=== PATIENT | male | born 1975 | race Caucasian/White ===

== ENCOUNTER 2017-05-14 05:32 | Inpatient (IN) | payer OTHER ==
[2017-05-14] MEDS ORDERED: NORMAL SALINE 500 ML IV ONE (05:53)
--- NOTE | 2017-05-14 07:09 | ER Document Report ---
ED GI/ - General Chief Complaint: Abdominal Pain Stated Complaint: LOWER ABDOMINAL PAIN Time Seen by Provider: 05/14/17 07:15 Mode of Arrival: Ambulatory Information source: Patient Notes: 42 yo smoker, recovering etoh x 75 days, no drugs, male normally healthy c/o dull ache low abdominal pain with sharp episodes and bl oating for 2 weeks. Normal BM's. suprapubic pressure with urination. Feels hard rubber ball below the umbilicus. Feels like he is emptying bladder. No clear urine which is unusual for increased water intake. No perineal pain. No fever. No abd. surgeries. No vomiting, no nausea. TRAVEL OUTSIDE OF THE [place] 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 Drug Abuse: None Lives with: Family Family History: Reviewed & Not Pertinent Patient has suicidal ideation: No Patient has homicidal ideation: No - Medical History Medical History: Negative Renal/ Medical History: Denies: Hx Peritoneal Dialysis Surgical Hx: Negative Review of Systems - Review of Systems Constitutional: No symptoms reported EENT: No symptoms reported Cardiovascular: No symptoms reported Respiratory: No symptoms reported Gastrointestinal: No symptoms reported Genitourinary: See HPI Male Genitourinary: No symptoms reported Musculoskeletal: No symptoms reported Skin: No symptoms reported Hematologic/Lymphatic: No symptoms reported Neurological/Psychological: No symptoms reported Physical Exam - Vital signs Vitals: Temp Pulse Resp BP Pulse Ox 99.0 F 93 18 126/87 H 97 05/14/17 05:46 05/14/17 05:46 05/14/17 05:46 05/14/17 05:46 05/14/17 05:46 Interpretation: Normal - General General appearance: Appears well, Alert In distress: None - HEENT Head: Normocephalic, Atraumatic Eyes: Normal Conjunctiva: Normal Pupils: PERRL Neck: Supple. No: Lymphadenopathy - Respiratory Respiratory status: No respiratory distress Chest status: Nontender Breath sounds: Normal Chest palpation: Normal - Cardiovascular Rhythm: Regular Heart sounds: Normal auscultation Murmur: No - Abdominal Inspection: Normal Distension: No distension Bowel sounds: Normal Tenderness: Tender - LLQ Organomegaly: No organomegaly. No: Hepatomegaly, Splenomegaly - Back Back: Normal, Nontender. No: CVA tenderness - Extremities General upper extremity: Normal inspection, Nontender, Normal color, Normal ROM , Normal temperature General lower extremity: Normal inspection, Nontender, Normal color, Normal ROM , Normal temperature, Normal weight bearing. No: Curt's sign - Neurological Neuro grossly intact: Yes Cognition: Normal Orientation: AAOx4 Maggi Coma Scale Eye Opening: Spontaneous [place] Coma Scale Verbal: Oriented Maggi Coma Scale Motor: Obeys Commands [place] Coma Scale Total: 15 Speech: Normal Motor strength normal: LUE, RUE, LLE, RLE Sensory: Normal - Psychological Associated symptoms: Normal affect, Normal mood - Skin Skin Temperature: Warm Skin Moisture: Dry Skin Color: Normal Skin irregularity: negative: Rash Course - Re-evaluation Re-evalutation: 05/14/17 08:[address] Leon and patient has a "iodide" allergies she recommended oral contrast instead of IV since his BMI is only 28. 05/14/17 12:[address] Zack Whittington about the 2.7 x 3.2 cm fluid collection abscess and surrounding mesenteric inflammation sigmoid colon, diverticulitis. He will admit to his service. Patient willing to be admitted IVs fluids at 150 an hour and antibiotics have been ordered. 05/14/17 12:08 - Vital Signs Vital signs: Temp Pulse Resp BP Pulse Ox 99.0 F 86 16 125/78 98 05/14/17 11:32 05/14/17 11:32 05/14/17 11:32 05/14/17 11:32 05/14/17 11:32 - Laboratory Result Diagrams: 05/14/17 07:52 05/14/17 07:52 Laboratory results interpreted by me: 05/14/17 05/14/17 07:52 07:52 WBC 13.8 H Absolute Neutrophils 10.4 H Glucose 114 H Discharge - Discharge Clinical Impression: Diverticulitis of intestine with abscess Qualifiers: Diverticulitis site: large intestine Diverticulitis bleeding: without bleeding Qualified Code(s): K57.20 - Diverticulitis of large intestine with perforation and abscess without bleeding Condition: Stable Disposition: ADMITTED INPATIENT Admitting Provider: Surgicalist Unit Admitted: Surgical Floor Instructions: Diverticulitis ([facility])
[2017-05-14 08:00] LABS: APPEARANCE,URINE SLIGHTLY-CLOUDY; BILIRUBIN,URINE NEGATIVE (NEGATIVE); GLUCOSE, URINE NEGATIVE (NEGATIVE); KETONES,URINE NEGATIVE (NEGATIVE); LEUKOCYTE ESTERASE,URINE NEGATIVE (NEGATIVE); NITRITE,URINE NEGATIVE (NEGATIVE); PROTEIN,URINE NEGATIVE (NEGATIVE); URINE SPECIFIC GRAVITY 1.005; UROBILINOGEN,URINE NEGATIVE mg/dL (<2.0)
[2017-05-14 08:09] LABS: ABSOLUTE BASOPHILS # (AUTO) 0.1 10^3/uL (0.0-0.2); ABSOLUTE EOSINOPHILS # (AUTO) 0.2 10^3/uL (0.0-0.6); ABSOLUTE LYMPHOCYTES (AUTO) 1.9 10^3/uL (0.5-4.7); ABSOLUTE MONOCYTES (AUTO) 1.3 10^3/uL (0.1-1.4); ABSOLUTE NEUT (AUTO) 10.4 10^3/uL (1.7-8.2); BASOPHILS % (AUTO) 0.6 % (0-2); EOSINOPHILS % (AUTO) 1.5 % (0-6); HEMATOCRIT 41.9 % (37.9-51.0); HEMOGLOBIN 14.7 g/dL (13.5-17.0); HGB HCT DIFFERENCE 2.2; LYMPHOCYTES % (AUTO) 13.6 % (13-45); MEAN CORPUSCULAR VOLUME 92 fl (80-97); MONOCYTES % (AUTO) 9.3 % (3-13); RED BLOOD COUNT 4.58 10^6/uL (4.35-5.55); RED CELL DISTRIBUTION WIDTH 12.9 % (11.5-14.0); WHITE BLOOD COUNT 13.8 10^3/uL (4.0-10.5)
[2017-05-14 08:17] LABS: ALANINE AMINOTRANSFERASE 31 U/L (21-72); ALBUMIN 3.7 g/dL (3.5-5.0); ALKALINE PHOSPHATASE 61 U/L (38-126); ANION GAP 13 (5-19); ASPARTATE AMINO TRANSFERASE 17 U/L (17-59); BILIRUBIN,DIRECT 0.2 mg/dL (0.0-0.4); BILIRUBIN,TOTAL 0.6 mg/dL (0.2-1.3); BLOOD UREA NITROGEN 10 mg/dL (7-20); CALCIUM 9.2 mg/dL (8.4-10.2); CARBON DIOXIDE 25 mmol/L (22-30); CHLORIDE 105 mmol/L (98-107); CREATININE RESULT 0.89 mg/dL (0.52-1.25); GLUCOSE 114 mg/dL (75-110); LIPASE 85.7 U/L (23-300); POTASSIUM 4.4 mmol/L (3.6-5.0); SODIUM 143.1 mmol/L (137-145); TOTAL PROTEIN 6.6 g/dL (6.3-8.2)
[2017-05-14] MEDS ORDERED: MORPHINE SULFATE 10 MG/ML INJ IV ONE (10:32)
--- NOTE | 2017-05-14 11:33 | RADIOLOGY REPORT (SQ) ---
EXAM DESCRIPTION: CT ABD/PELVIS ORAL ONLY COMPLETED DATE/TIME: 05/14/2017 11:16 am REASON FOR STUDY: LLQ abd pain COMPARISON: None. TECHNIQUE: CT scan of the abdomen and pelvis performed with oral contrast and no intravenous contras t. Images reviewed with lung, soft tissue, and bone windows. Reconstructed coronal and sagittal MPR i mages reviewed. All images stored on PACS. All CT scanners at this facility use dose modulation, iterative reconstruction, and/or weight based d osing when appropriate to reduce radiation dose to as low as reasonably achievable (ALARA). [facility]: Dose Right [facility]: CareDose [facility]: Dose Right [facility]: Teradose 4D [facility]: Fileboard RADIATION DOSE: Up-to-date CT equipment and radiation dose reduction techniques were employed. CTDIv ol: 8.8 mGy. DLP: 481 mGy-cm. mGy. LIMITATIONS: None. FINDINGS: LOWER CHEST: No significant findings. No nodules or infiltrates. NON-CONTRASTED LIVER, SPLEEN, ADRENALS: Evaluation limited by lack of IV contrast. No identified sign ificant masses. PANCREAS: No masses. No peripancreatic inflammatory changes. GALLBLADDER: No identified stones by CT criteria. No inflammatory changes to suggest cholecystitis. RIGHT KIDNEY AND URETER: No suspicious masses. Assessment limited by lack of IV contrast. No signif icant calcifications. No hydronephrosis or hydroureter. LEFT KIDNEY AND URETER: No suspicious masses. Assessment limited by lack of IV contrast. No signifi cant calcifications. No hydronephrosis or hydroureter. AORTA AND RETROPERITONEUM: No aneurysm. No retroperitoneal masses or adenopathy. BOWEL AND PERITONEAL CAVITY: Mesenteric inflammation sigmoid colon. 2.7 x 3.2 cm in diameter fluid c ollection. Due to surrounding bowel, this will be difficult to drain percutaneously. Surgical consu ltation is recommended. No ascites or free air. APPENDIX: Normal. PELVIS, BLADDER, AND ABDOMINAL WALL: No abnormal pelvic masses. No abdominal wall hernias. Bladder un remarkable. BONES: No significant findings. OTHER: No other significant finding. IMPRESSION: Diverticulitis. Small abscess. TECHNICAL DOCUMENTATION: JOB ID: [id number] Quality ID # [id number]: Final reports with documentation of one or more dose reduction techniques (e.g., Au tomated exposure control, adjustment of the mA and/or kV according to patient size, use of iterative reconstruction technique) 2010 [employer]- All Rights Reserved
[2017-05-14] MEDS ORDERED: METRONIDAZOLE 500 MG/NS RTU 100 ML IV ONE (12:00)
[2017-05-14] MEDS ORDERED: CIPROFLOXACIN 400 MG/D5W RTU 400 MG/200 ML RTUPB IV SCH (12:00)
[2017-05-14] MEDS ORDERED: NORMAL SALINE 1000 ML 1,000 ML IV ONE (12:08)
[2017-05-14] MEDS ORDERED: MORPHINE SULFATE 10 MG/ML INJ IV PRN (14:38)
[2017-05-14] MEDS ORDERED: NORMAL SALINE 1000 ML 1,000 ML IV PRN (14:38)
[2017-05-14] MEDS ORDERED: ONDANSETRON HCL INJ/PF 4 MG/2 ML SDV IV PRN (14:38)
[2017-05-14] MEDS ORDERED: DEXTROSE 40% GEL 15 GM TUBE PO PRN ×2 (14:38)
[2017-05-14] MEDS ORDERED: DEXTROSE 50%-WATER 25 GM/50 ML DISP.SYRIN IV PRN ×2 (14:38)
[2017-05-14] MEDS ORDERED: GLUCAGON,HUMAN RECOMB 1 MG INJ SUBCUT PRN (14:38)
--- NOTE | 2017-05-14 14:38 | PDOC H&P ---
History of Present Illness Admission Date/PCP: 05/14/17 12:23 Patient complains of: Lower abdominal pain, bloating and gaseousness. History of Present Illness: TAMARA DEE is a 42 year old male who presents with a 1-1/2 week period of bloating and gaseousness, that did not respond to Gas-X, laxatives, or cessation of his supplements and vitamins.Of bloating and gaseousness, that did not respond to Gas-X, laxatives, or cessation of his supplements and vitamins.The patient states that he began having pain, approximately 2-3 days ago that was 8-9 out of 10. When seen in the emergency room, he was found to have left lower quadrant tenderness and guarding. However, the CT scan revealed a 2.7 x 3.2 cm abscess,along the sigmoid colon, That was not amenable to percutaneous drainage, secondary to bowel loops. Surgical referral was just made because of the need for sigmoid resection. Social History Lives with: Family Smoking Status: Current Every Day Smoker - Advance Directive Resuscitation Status: Full Code Family History Family History: Reviewed & Not Pertinent Parental Family History Reviewed: No Children Family History Reviewed: No Sibling(s) Family History Reviewed.: No Medication/Allergy Home Medications: No Home Medications 05/14/17 Allergies/Adverse Reactions: iodine Allergy (Verified 05/14/17 08:02) Penicillins Allergy (Verified 05/14/17 08:02) Physical Exam Vital Signs: Temp Pulse Resp BP Pulse Ox 98.1 F 83 18 124/82 97 05/14/17 13:33 05/14/17 13:33 05/14/17 13:33 05/14/17 13:33 05/14/17 13:33 General appearance: PRESENT: no acute distress, cooperative, well-developed, well-nourished Head exam: PRESENT: atraumatic, normocephalic Eye exam: PRESENT: conjunctiva pink, EOMI, PERRLA Mouth exam: PRESENT: moist, neck supple, tongue midline Neck exam: PRESENT: full ROM. ABSENT: JVD, lymphadenopathy, tenderness, thyromegaly, tracheal deviation Respiratory exam: PRESENT: clear to auscultation latrice. ABSENT: crackles, rales, tachypnea, unlabored, wheezes Cardiovascular exam: PRESENT: RRR GI/Abdominal exam: PRESENT: guarding - Mild, normal bowel sounds, soft, tenderness - Left lower quadrant. ABSENT: rebound, rigid Rectal exam: PRESENT: deferred Neurological exam: PRESENT: alert, altered, awake, oriented to person, oriented to place, oriented to time, oriented to situation Psychiatric exam: PRESENT: appropriate affect Results Impressions: Abdomen/Pelvis CT 05/14/17 08:37 IMPRESSION: Diverticulitis. Small abscess. Assessment & Plan - Plan Summary Plan Summary: Given the percutaneous drainage cannot be accomplished, and given that he is not obstructed, we will proceed with bowel prep, IV antibiotics, and prepare for sigmoid resection with primary anastomosis in the morning.
[2017-05-14] MEDS ORDERED: INFLUENZA ADLT QUAD (36MOS+) 2017-18 VAC 0.5 ML SYR IM PRN (15:55)
[2017-05-14] MEDS ORDERED: PEG 3350/NA SULF,BICARB,CL/KCL 4000 ML PO PRN (17:00)
[2017-05-14] MEDS: METRONIDAZOLE 500 MG/NS RTU 100 ML IV SCH ×2 (17:31→23:52)
[2017-05-14] MEDS: FAMOTIDINE INJ/PF 20 MG/2 ML SDV IV SCH (22:37)
[2017-05-14] MEDS: CIPROFLOXACIN 400 MG/D5W RTU 400 MG/200 ML RTUPB IV SCH (22:37)
[2017-05-15] MEDS: METRONIDAZOLE 500 MG/NS RTU 100 ML IV SCH ×3 (05:33→17:50)
[2017-05-15] MEDS: CIPROFLOXACIN 400 MG/D5W RTU 400 MG/200 ML RTUPB IV SCH ×2 (09:08→22:28)
[2017-05-15] MEDS: FAMOTIDINE INJ/PF 20 MG/2 ML SDV IV SCH ×2 (09:09→22:28)
[2017-05-15] MEDS: ENOXAPARIN SODIUM INJ 40 MG/0.4 ML DISP.SYRIN SUBCUT SCH (09:09)
[2017-05-15] MEDS ORDERED: BUPIVACAINE HCL 0.5 % INJ/PF 30 ML SDV ONE (11:08)
[2017-05-15] MEDS ORDERED: GLUCAGON,HUMAN RECOMB 1 MG INJ ONE (11:08)
[2017-05-15] MEDS ORDERED: FENTANYL CITRATE INJ/PF 250 MCG/5 ML AMPULE ONE (12:14)
[2017-05-15] MEDS ORDERED: MIDAZOLAM 2 MG/2 ML INJ ONE (12:15)
[2017-05-15] MEDS ORDERED: PROPOFOL INJ 200 MG/20 ML VIAL IV ONE (12:15)
[2017-05-15] MEDS ORDERED: EPHEDRINE SULFATE INJ 50 MG/1 ML AMPULE ONE (12:15)
[2017-05-15] MEDS ORDERED: ACETAMINOPHEN 100 ML IV ONE (12:15)
[2017-05-15] MEDS ORDERED: HYDROMORPHONE HCL INJ/PF 2 MG/ML AMPULE ONE ×2 (12:15→14:44)
[2017-05-15] MEDS ORDERED: METRONIDAZOLE 500 MG/NS RTU 100 ML IV ONE (12:22)
[2017-05-15] MEDS ORDERED: ONDANSETRON HCL INJ/PF 4 MG/2 ML SDV ONE (14:23)
[2017-05-15] MEDS ORDERED: NEOSTIGMINE METHYLSULFATE 10 MG/10 ML VIAL ONE (14:23)
[2017-05-15] MEDS ORDERED: DEXAMETHASONE SOD PHOSPHATE INJ 4 MG/1 ML VIAL ONE (14:23)
[2017-05-15] MEDS ORDERED: ROCURONIUM BROMIDE INJ 50 MG/5 ML VIAL IV ONE (14:23)
[2017-05-15] MEDS ORDERED: GLYCOPYRROLATE INJ 0.4 MG/2 ML VIAL ONE (14:23)
[2017-05-15] MEDS ORDERED: SUCCINYLCHOLINE CHLORIDE INJ 200 MG/10 ML VIAL ONE (14:23)
[2017-05-15] MEDS ORDERED: ONDANSETRON HCL INJ/PF 4 MG/2 ML SDV IV PRN ×2 (14:31→15:00)
--- NOTE | 2017-05-15 14:31 | Brief Operative Note ---
BRIEF OPERATIVE REPORT DATE OF SURGERY: 05/15/17 TIME OF SURGERY: 12:15 PREOPERATIVE DIAGNOSIS: Contained perforated sigmoid diverticulitis with abscess /phlegmon POSTOPERATIVE DIAGNOSIS: Same SURGEON: VERENICE PALUMBO FINDINGS: Contained perforated sigmoid diverticulitis with abscess/phlegmon COMPLICATIONS: None ESTIMATED BLOOD LOSS: 50cc TISSUE REMOVED OR ALTERED: Segment of sigmoid colon with abscess/phlegmon TECHNICAL PROCEDURE: See Dictation
[2017-05-15] MEDS ORDERED: MEPERIDINE HCL/PF INJ 25 MG/1 ML DISP.SYRIN IV PRN (15:23)
[2017-05-15] MEDS ORDERED: PROMETHAZINE HCL INJ 25 MG/1 ML VIAL IV PRN ×2 (15:23)
[2017-05-15] MEDS ORDERED: MORPHINE SULFATE 10 MG/ML INJ IV PRN (15:23)
[2017-05-15] MEDS ORDERED: OXYCODONE-ACETAMINOPHEN 5-325 MG TABLET PO PRN ×2 (15:23)
[2017-05-15] MEDS ORDERED: FENTANYL CITRATE INJ/PF 100 MCG/2 ML AMPUL IV PRN ×3 (15:23)
[2017-05-15] MEDS ORDERED: DIPHENHYDRAMINE HCL 50 MG/ML VIAL IV PRN (15:23)
[2017-05-15] MEDS ORDERED: KETOROLAC TROMETHAMINE INJ/PF 30 MG/1 ML SDV ONE (15:33)
--- NOTE | 2017-05-15 17:03 | OPERATIVE REPORT E ---
Operative Report NAME: TAMARA DEE : 1975 AGE: 42Y DATE OF SURGERY: 05/15/2017 ROOM: 424 PREOPERATIVE DIAGNOSIS: CONTAINED PERFORATED SIGMOID DIVERTICULITIS WITH ABSCESS, NOT AMENABLE TO PERCUTANEOUS DRAINAGE BY CT GUIDED DRAINAGE. POSTOPERATIVE DIAGNOSIS: PERFORATED SIGMOID DIVERTICULITIS WITH SIGMOID PHLEGMON. OPERATION: Segmental sigmoid colectomy with primary anastomosis between the descending colon and the sigmoid colon. SURGEON: VERENICE PALUMBO M.D. ANESTHESIA: General REPLACEMENT: Crystalloids. DRAINS: None. COMPLICATIONS: None. CONDITION: Stable. FINDINGS: Patient was admitted with contained perforated sigmoid diverticulitis with abscess formation measuring 2.3 x 4.7 cm however at the time of surgery, patient was found to have a phlegmon of the proximal sigmoid colon without evidence of an abscess. PROCEDURE: The patient was brought to the operating room suite and placed in supine position on the operating table. Monitoring devices were attached. IV sedation was administered followed by the induction of general endotracheal anesthesia. The patient's abdomen was prepped and draped in the usual sterile manner. A timeout was achieved. After all concurred, the patient's abdomen was marked and a midline incision was made from the supraumbilical region to the suprapubic region. The incision was guided through the skin and subcutaneous tissue down to the linea alba. The linea alba was divided as was the peritoneum and the abdominal cavity was entered. Upon entering the abdominal cavity, we noted the sigmoid phlegmon to which a loop of small bowel was adherent and it was also adherent to the posterior peritoneum. We then packed away the majority of the small bowel using laps in the upper abdomen and then we began to dissect the phlegmon off the posterior peritoneum and dissected loops of small bowel off the phlegmon. We did this using blunt and sharp dissection and significant tissue attachments were divided using the endo ligature. We then decided to divide the segment of the mid sigmoid from the distal sigmoid and a GEOVANY was used to divide the sigmoid. We then continued to mobilize the sigmoid and the phlegmon from the posterior peritoneum and once this was accomplished using the LigaSure, we then divided the proximal to distal descending colon from the proximal sigmoid where the phlegmon had formed. Once this was done, we then mobilized the descending colon by incising along the white line of Toldt in order to bring down our descending colon so that a iuyp-cr-oclr anastomosis could be created between the distal sigmoid and the proximal descending colon. We then lined up the bowel [id number] using 3-0 silk sutures. Once this was done, we made openings in each segment and after placing a bowel clamp on the descending colon, we inserted the GEOVANY-5 stapler creating a npcf-[id number] anastomosis. We then closed the opening made by the GEOVANY using the TA-30 and once this was done, this was oversewn using 3-0 silk. The patient tolerated the procedure well. Sponge and instrument counts were correct. The patient was discharged to the PACU in stable condition. DICTATING PHYSICIAN: VERENICE PALUMBO M.D. [id number] PHY#: [id number] ID: [id number] JOB#: [id number] ACCT: [id number] cc:VERENICE PALUMBO M.D. >
[2017-05-15] MEDS: MORPHINE SULFATE 10 MG/ML INJ IV PRN ×2 (18:37→22:27)
[2017-05-15] MEDS: DEXTROSE 5%-LACTATED RINGERS 1,000 ML IV PRN (22:39)
[2017-05-16] MEDS: METRONIDAZOLE 500 MG/NS RTU 100 ML IV SCH ×4 (01:09→17:30)
[2017-05-16] MEDS: KETOROLAC TROMETHAMINE INJ/PF 30 MG/1 ML SDV IV PRN ×2 (03:14→21:33)
[2017-05-16] MEDS: ENOXAPARIN SODIUM INJ 40 MG/0.4 ML DISP.SYRIN SUBCUT SCH (09:26)
[2017-05-16] MEDS: CIPROFLOXACIN 400 MG/D5W RTU 400 MG/200 ML RTUPB IV SCH ×2 (09:26→21:33)
[2017-05-16] MEDS: MORPHINE SULFATE 10 MG/ML INJ IV PRN ×3 (09:26→20:27)
[2017-05-16] MEDS: FAMOTIDINE INJ/PF 20 MG/2 ML SDV IV SCH ×2 (09:26→21:33)
--- NOTE | 2017-05-16 10:22 | PDOC PROGRESS REPORT ---
Subjective Progress Note for:: 05/16/17 Subjective:: POD 1 s/p sigmoid colectomy, patient at bedside awaiting removal of evans catheter, pain at surgical site. Hungry no flattus. Initiating cliq diet. Physical Exam Vital Signs: Temp Pulse Resp BP Pulse Ox 98.1 F 81 17 113/71 96 05/16/17 00:49 05/16/17 00:49 05/16/17 00:49 05/16/17 00:49 05/16/17 00:49 Intake & Output 05/15/17 05/16/17 05/17/17 06:59 06:59 06:59 Intake Total 5950 71914 Output Total 2700 Balance 5950 00151 Weight 90.718 kg 90.718 kg General appearance: PRESENT: no acute distress, cooperative, well-developed, well-nourished Head exam: PRESENT: atraumatic, normocephalic Eye exam: PRESENT: conjunctiva pink. ABSENT: conjunctival injection Mouth exam: PRESENT: moist, tongue midline Neck exam: ABSENT: lymphadenopathy, thyromegaly Respiratory exam: PRESENT: symmetrical. ABSENT: accessory muscle use, tachypnea Vascular exam: PRESENT: normal capillary refill GI/Abdominal exam: PRESENT: soft, tenderness - incisional. ABSENT: distended, firm, guarding Extremities exam: ABSENT: calf tenderness, clubbing, tenderness Musculoskeletal exam: PRESENT: ambulatory, full ROM Neurological exam: PRESENT: alert, awake, oriented to person, oriented to place , oriented to time, CN II-XII grossly intact Results Impressions: Abdomen/Pelvis CT 05/14/17 08:37 IMPRESSION: Diverticulitis. Small abscess. Assessment & Plan - Diagnosis (1) S/P partial colectomy Is this a current diagnosis for this admission?: Yes Plan: Cliq diet, advance diet with bowel function Ambulation Pain control Pulmonary toilet, IS ordered DVT/GI prophylaxis
[2017-05-16 10:56] LABS: ABSOLUTE BASOPHILS # (AUTO) 0.1 10^3/uL (0.0-0.2); ABSOLUTE EOSINOPHILS # (AUTO) 0.1 10^3/uL (0.0-0.6); ABSOLUTE LYMPHOCYTES (AUTO) 2.2 10^3/uL (0.5-4.7); ABSOLUTE MONOCYTES (AUTO) 0.6 10^3/uL (0.1-1.4); ABSOLUTE NEUT (AUTO) 9.1 10^3/uL (1.7-8.2); BASOPHILS % (AUTO) 0.5 % (0-2); EOSINOPHILS % (AUTO) 1.1 % (0-6); LYMPHOCYTES % (AUTO) 18.1 % (13-45); MEAN CORPUSCULAR HEMOGLOBIN 32.3 pg (27.0-33.4); MEAN CORPUSCULAR HGB CONC 35.1 g/dL (32.0-36.0); MEAN CORPUSCULAR VOLUME 92 fl (80-97); MONOCYTES % (AUTO) 5.1 % (3-13); RED BLOOD COUNT 4.02 10^6/uL (4.35-5.55); RED CELL DISTRIBUTION WIDTH 12.6 % (11.5-14.0); SEGMENTED NEUTROPHILS % (AUTO) 75.2 % (42-78); WHITE BLOOD COUNT 12.1 10^3/uL (4.0-10.5)
[2017-05-17] MEDS: METRONIDAZOLE 500 MG/NS RTU 100 ML IV SCH ×4 (00:22→17:06)
[2017-05-17] MEDS: DEXTROSE 5%-LACTATED RINGERS 1,000 ML IV PRN ×2 (04:06→17:07)
[2017-05-17] MEDS: MORPHINE SULFATE 10 MG/ML INJ IV PRN ×3 (07:05→18:20)
[2017-05-17] MEDS ORDERED: HYDROCODONE/ACETAMINOPHEN 5-325 MG TABLET PO PRN (08:19)
--- NOTE | 2017-05-17 08:19 | PDOC PROGRESS REPORT ---
Subjective Progress Note for:: 05/17/17 Subjective:: No events overnight Pain controlled Tolerating a liquid diet, adding po pain meds awaiting bowel function Patient ambulatory after evans out yesturday Physical Exam Vital Signs: Temp Pulse Resp BP Pulse Ox 97.6 F 76 18 114/72 96 05/16/17 23:33 05/16/17 23:33 05/16/17 23:33 05/16/17 23:33 05/16/17 23:33 Intake & Output 05/16/17 05/17/17 05/18/17 06:59 06:59 06:59 Intake Total 59453 4435 Output Total 2700 600 Balance 36445 3835 Weight 90.718 kg 94.8 kg General appearance: PRESENT: no acute distress, well-developed, well-nourished Head exam: PRESENT: atraumatic, normocephalic Eye exam: PRESENT: conjunctiva pink Mouth exam: PRESENT: moist Neck exam: ABSENT: lymphadenopathy, thyromegaly, tracheal deviation Respiratory exam: PRESENT: symmetrical, unlabored. ABSENT: tachypnea Vascular exam: PRESENT: normal capillary refill GI/Abdominal exam: PRESENT: soft, tenderness - Incisional, incision C/D/I. ABSENT: distended, firm Extremities exam: ABSENT: calf tenderness, tenderness Neurological exam: PRESENT: alert, awake, oriented to person, oriented to place , oriented to time, CN II-XII grossly intact Results Laboratory Results: 05/16/17 10:44 05/16/17 10:44 WBC 12.1 H RBC 4.02 L Hgb 13.0 L Hct 37.0 L MCV 92 MCH 32.3 MCHC 35.1 RDW 12.6 Plt Count 195 Seg Neutrophils % 75.2 Lymphocytes % 18.1 Monocytes % 5.1 Eosinophils % 1.1 Basophils % 0.5 Absolute Neutrophils 9.1 H Absolute Lymphocytes 2.2 Absolute Monocytes 0.6 Absolute Eosinophils 0.1 Absolute Basophils 0.1 Impressions: Abdomen/Pelvis CT 05/14/17 08:37 IMPRESSION: Diverticulitis. Small abscess. Assessment & Plan - Diagnosis (1) S/P partial colectomy Is this a current diagnosis for this admission?: Yes Plan: Cliq diet, maintain, awaiting bowel function Ambulation Pain control, adding oral pain meds Pulmonary toilet, using IS 10x/hr DVT/GI prophylaxis
[2017-05-17] MEDS: ENOXAPARIN SODIUM INJ 40 MG/0.4 ML DISP.SYRIN SUBCUT SCH (09:19)
[2017-05-17] MEDS: FAMOTIDINE INJ/PF 20 MG/2 ML SDV IV SCH ×2 (09:22→21:09)
[2017-05-17] MEDS: CIPROFLOXACIN 400 MG/D5W RTU 400 MG/200 ML RTUPB IV SCH ×2 (09:23→21:09)
[2017-05-17] MEDS: KETOROLAC TROMETHAMINE INJ/PF 30 MG/1 ML SDV IV PRN ×2 (09:23→21:08)
[2017-05-17 10:42] LABS: ABSOLUTE BASOPHILS # (AUTO) 0.1 10^3/uL (0.0-0.2); ABSOLUTE EOSINOPHILS # (AUTO) 0.3 10^3/uL (0.0-0.6); ABSOLUTE LYMPHOCYTES (AUTO) 2.1 10^3/uL (0.5-4.7); ABSOLUTE MONOCYTES (AUTO) 0.8 10^3/uL (0.1-1.4); ABSOLUTE NEUT (AUTO) 6.1 10^3/uL (1.7-8.2); BASOPHILS % (AUTO) 0.9 % (0-2); EOSINOPHILS % (AUTO) 2.7 % (0-6); HEMATOCRIT 35.3 % (37.9-51.0); HEMOGLOBIN 12.4 g/dL (13.5-17.0); HGB HCT DIFFERENCE 1.9; LYMPHOCYTES % (AUTO) 22.6 % (13-45); MEAN CORPUSCULAR HEMOGLOBIN 31.7 pg (27.0-33.4); MEAN CORPUSCULAR VOLUME 91 fl (80-97); MONOCYTES % (AUTO) 8.1 % (3-13); RED CELL DISTRIBUTION WIDTH 12.8 % (11.5-14.0); SEGMENTED NEUTROPHILS % (AUTO) 65.7 % (42-78); WHITE BLOOD COUNT 9.3 10^3/uL (4.0-10.5)
[2017-05-18] MEDS: METRONIDAZOLE 500 MG/NS RTU 100 ML IV SCH ×3 (00:57→12:34)
[2017-05-18] MEDS: DEXTROSE 5%-LACTATED RINGERS 1,000 ML IV PRN (05:04)
[2017-05-18] MEDS: KETOROLAC TROMETHAMINE INJ/PF 30 MG/1 ML SDV IV PRN (05:18)
--- NOTE | 2017-05-18 08:57 | PDOC PROGRESS REPORT ---
Subjective Progress Note for:: 05/18/17 Subjective:: Patient tolerating a diet Minimal pain associated with incision Passing flattus/BM per patient Physical Exam Vital Signs: Temp Pulse Resp BP Pulse Ox 97.3 F 62 14 140/89 H 98 05/18/17 07:20 05/18/17 07:20 05/18/17 07:20 05/18/17 07:20 05/18/17 07:20 Intake & Output 05/17/17 05/18/17 05/19/17 06:59 06:59 06:59 Intake Total 4435 4885 Output Total 600 Balance 3835 4885 Weight 94.8 kg 96.3 kg General appearance: PRESENT: no acute distress Head exam: PRESENT: atraumatic, normocephalic Eye exam: PRESENT: conjunctiva pink Mouth exam: PRESENT: moist, neck supple Neck exam: ABSENT: lymphadenopathy, tenderness, thyromegaly Respiratory exam: PRESENT: symmetrical, unlabored. ABSENT: tachypnea Vascular exam: PRESENT: normal capillary refill GI/Abdominal exam: PRESENT: soft, tenderness - incisional pain. ABSENT: distended, firm Extremities exam: ABSENT: calf tenderness, pedal edema Neurological exam: PRESENT: alert, awake, oriented to person, oriented to place , oriented to time, CN II-XII grossly intact Results Laboratory Results: 05/17/17 10:23 05/17/17 10:23 WBC 9.3 RBC 3.90 L Hgb 12.4 L Hct 35.3 L MCV 91 MCH 31.7 MCHC 35.0 RDW 12.8 Plt Count 197 Seg Neutrophils % 65.7 Lymphocytes % 22.6 Monocytes % 8.1 Eosinophils % 2.7 Basophils % 0.9 Absolute Neutrophils 6.1 Absolute Lymphocytes 2.1 Absolute Monocytes 0.8 Absolute Eosinophils 0.3 Absolute Basophils 0.1 Impressions: Abdomen/Pelvis CT 05/14/17 08:37 IMPRESSION: Diverticulitis. Small abscess. Assessment & Plan - Diagnosis (1) S/P partial colectomy Is this a current diagnosis for this admission?: Yes Plan: Advance diet With tolerance home today Home on oral antibiotics
--- NOTE | 2017-05-18 09:38 | PDOC DISCHARGE SUMMARY ---
Discharge Summary (SDC) - Discharge Final Diagnosis: Diverticulitis, s/p sigmoidectomy Date of Surgery: 05/15/17 Discharge Date: 05/18/17 Condition: Good Forms: Post Operative Treatment or Instructions: Fiber supplementation of diet, 7-10g daily to help with diverticulosis development and prevent diverticulitis Oral antibiotic course for 14 days Prescriptions: Ciprofloxacin HCl [Cipro 500 mg Tablet] 500 mg PO BID #20 tablet Hydrocodone/Acetaminophen [[place] 5-325 mg Tablet] 2 tab PO Q6HP PRN #20 tablet PRN Reason: Metronidazole [Flagyl 500 mg Tablet] 500 mg PO TID #30 tablet Referrals: [facility] [Provider Group] Respiratory Treatments at Home: Deep Breathing/Coughing, Incentive Spirometer Discharge Activity: No Lifting Over 10 Pounds - x4 weeks Home Care Assistance: None Needed Report the Following to Your Physician Immediately: Shortness of Breath, Nausea , Vomiting, Increase in Pain, Signs of Hyperglycemia, Signs of Hypoglycemia, Yellow Skin, Fever over 101 Degrees, Unusual Bleeding, Redness, Swelling, Warmth , Increased Soreness, Drainage-Yellow, Drainage-[place], Drainage-Green, Drainage- Foul Smelling, Increased Vaginal Bleed, Large Clots, Numbness, Tingling Sensation, Visual Disturbance, Weight Gain 2-3lbs a day, Weight Gain 3-5lbs a week, Wheezing, Seizure, IV Site Infection Signs, Urinary Infection Signs
[2017-05-18] MEDS: FAMOTIDINE INJ/PF 20 MG/2 ML SDV IV SCH (10:13)
[2017-05-18] MEDS: CIPROFLOXACIN 400 MG/D5W RTU 400 MG/200 ML RTUPB IV SCH (10:14)
[2017-05-18] MEDS: ENOXAPARIN SODIUM INJ 40 MG/0.4 ML DISP.SYRIN SUBCUT SCH (10:17)
[2017-05-18 10:45] LABS: ABSOLUTE BASOPHILS # (AUTO) 0.1 10^3/uL (0.0-0.2); ABSOLUTE EOSINOPHILS # (AUTO) 0.3 10^3/uL (0.0-0.6); ABSOLUTE LYMPHOCYTES (AUTO) 1.5 10^3/uL (0.5-4.7); ABSOLUTE MONOCYTES (AUTO) 0.8 10^3/uL (0.1-1.4); BASOPHILS % (AUTO) 0.8 % (0-2); EOSINOPHILS % (AUTO) 3.3 % (0-6); HEMATOCRIT 37.3 % (37.9-51.0); HEMOGLOBIN 12.9 g/dL (13.5-17.0); HGB HCT DIFFERENCE 1.4; LYMPHOCYTES % (AUTO) 17.5 % (13-45); MEAN CORPUSCULAR HEMOGLOBIN 31.3 pg (27.0-33.4); MEAN CORPUSCULAR HGB CONC 34.5 g/dL (32.0-36.0); MEAN CORPUSCULAR VOLUME 91 fl (80-97); MONOCYTES % (AUTO) 8.8 % (3-13); SEGMENTED NEUTROPHILS % (AUTO) 69.6 % (42-78); WHITE BLOOD COUNT 8.7 10^3/uL (4.0-10.5)
[2017-05-18 13:00] VITALS: BP 137/82
--- NOTE | 2017-06-22 21:13 | PDOC DISCHARGE SUMMARY ---
General - Admit/Disc Date/PCP Admission Date/Primary Care Provider: 05/14/17 14:38 Discharge Date: 05/18/17 - Discharge Diagnosis (1) S/P partial colectomy Is this a current diagnosis for this admission?: Yes - Additional Information Resuscitation Status: Full Code Discharge Diet: Other (Comments) Discharge Activity: No Lifting Over 10 Pounds Home Medications: Ciprofloxacin HCl [Cipro 500 mg Tablet] 500 mg PO BID #20 tablet 05/18/17 Hydrocodone/Acetaminophen [[place] 5-325 mg Tablet] 2 tab PO Q6HP PRN #20 tablet 05/18/17 Metronidazole [Flagyl 500 mg Tablet] 500 mg PO TID #30 tablet 05/18/17 History of Present Illness Patient complains of: Abdominal pain History of Present Illness: TAMARA DEE is a 42 year old male admitted on 05/14/17 for contained sigmoid perforation. Innability to percutaneously drain the site drove decision to perform sigmoid colectomy by Dr Egan. Patient was hospitalized postoperatively for recovery after sigmoidectomy. Uneventful postoperative course with progression of tolerance of diet and pain control allowed patient discharge home on POD 5. At discharge patient was stable. Instructions were given to the patient for weight restriction of 10-lbs or less, pain control options including narcotics orally. Instructions were given to the patient to call for followup with general surgery at [facility] for follow up in 7-10 days after discharge home. Final diagnosis was sigmoid diverticulitis s/p sigmoidectomy with primary anastamosis. Hospital Course Hospital Course: Uneventful hospital course. Progression and recovery as anticipated. Physical Exam Vital Signs: Temp Pulse Resp BP Pulse Ox 97.5 F 75 16 137/82 H 98 05/18/17 12:51 05/18/17 12:51 05/18/17 12:51 05/18/17 12:51 05/18/17 12:51 General appearance: PRESENT: no acute distress, well-developed, well-nourished Head exam: PRESENT: atraumatic, normocephalic Eye exam: PRESENT: conjunctiva pink, EOMI, PERRLA. ABSENT: scleral icterus Ear exam: PRESENT: normal external ear exam Mouth exam: PRESENT: moist, tongue midline Neck exam: ABSENT: carotid bruit, JVD, lymphadenopathy, thyromegaly Respiratory exam: PRESENT: clear to auscultation latrice. ABSENT: rales, rhonchi, wheezes Cardiovascular exam: PRESENT: RRR. ABSENT: diastolic murmur, rubs, systolic murmur Pulses: PRESENT: normal dorsalis pedis pul Vascular exam: PRESENT: normal capillary refill GI/Abdominal exam: PRESENT: normal bowel sounds, soft. ABSENT: distended, guarding, mass, organolmegaly, rebound, tenderness Rectal exam: PRESENT: deferred Extremities exam: PRESENT: full ROM. ABSENT: calf tenderness, clubbing, pedal edema Neurological exam: PRESENT: alert, awake, oriented to person, oriented to place , oriented to time, oriented to situation, CN II-XII grossly intact. ABSENT: motor sensory deficit Psychiatric exam: PRESENT: appropriate affect, normal mood. ABSENT: homicidal ideation, suicidal ideation Skin exam: PRESENT: dry, intact, warm. ABSENT: cyanosis, rash Results Laboratory Results: 05/18/17 10:23 Impressions: Abdomen/Pelvis CT 05/14/17 08:37 IMPRESSION: Diverticulitis. Small abscess. Qualifiers PATEINT BEING DISCHARGED WITH ANY OF THE FOLLOWING DIAGNOSIS?: No Plan Discharge Plan: Discharge home with short term follow up with General surgery outpatient.
== END 2017-05-18 15:40 | disposition home or self-care (01) | DRG 330 ==
LOC: ER 05:32 → UNDOADMIN 12:23 → EH 12:23 → 4S 13:32 → EH 13:32 → 4S 14:38 → UNDOADMIN 14:38
PROVIDERS: ADMIT Surgery; ATTEND Surgery
PROC: 0DTN0ZZ Resection of Sigmoid Colon, Open Approach (ICD-10-PCS; principal; 2017-05-15 12:00)
PROC: 3E0234Z Introduction of Serum, Toxoid and Vaccine into Muscle, Percutaneous Approach (ICD-10-PCS; 2017-05-18)
DX: K57.20 Diverticulitis of large intestine with perforation and abscess without bleeding (principal); F17.210 Nicotine dependence, cigarettes, uncomplicated; Z23 Encounter for immunization; Z88.0 Allergy status to penicillin; Z88.8 Allergy status to other drugs, medicaments and biological substances
CPT/HCPCS: 36415; 74176; 80053; 81001; 83690; 840; 85025; 87040; 87086; 88305; 90686; 96360; 99285; J0131; J0330; J0744; J1100; J1170; J1610; J1650; J1885; J2250; J2270; J2405; J2704; J3010; J3490; J7030; J7040; S0028

== ENCOUNTER → 2017-07-24 | Outpatient (CLI) | payer OTHER ==
--- NOTE | 2017-07-24 14:21 | RADIOLOGY REPORT (SQ) ---
EXAM DESCRIPTION: CT ABD/PELVIS ORAL ONLY COMPLETED DATE/TIME: 07/24/2017 2:03 pm REASON FOR STUDY: R10.9 UNSPECIFIED ABDOMINAL PAIN R10.9 UNSPECIFIED ABDOMINAL PAIN COMPARISON: 05/14/2017 TECHNIQUE: CT scan of the abdomen and pelvis performed with oral contrast and no intravenous contras t. Images reviewed with lung, soft tissue, and bone windows. Reconstructed coronal and sagittal MPR i mages reviewed. All images stored on PACS. All CT scanners at this facility use dose modulation, iterative reconstruction, and/or weight based d osing when appropriate to reduce radiation dose to as low as reasonably achievable (ALARA). [facility]: Dose Right [facility]: CareDose [facility]: Dose Right [facility]: Teradose 4D [facility]: [employer] RADIATION DOSE: CT Rad equipment meets quality standard of care and radiation dose reduction techniq ues were employed. CTDIvol: 6.5 mGy. DLP: 352 mGy-cm. mGy. LIMITATIONS: None. FINDINGS: LOWER CHEST: No significant findings. No nodules or infiltrates. NON-CONTRASTED LIVER, SPLEEN, ADRENALS: Evaluation limited by lack of IV contrast. No identified sign ificant masses. PANCREAS: No masses. No peripancreatic inflammatory changes. GALLBLADDER: No identified stones by CT criteria. No inflammatory changes to suggest cholecystitis. RIGHT KIDNEY AND URETER: No suspicious masses. Assessment limited by lack of IV contrast. No signif icant calcifications. No hydronephrosis or hydroureter. LEFT KIDNEY AND URETER: No suspicious masses. Assessment limited by lack of IV contrast. No signifi cant calcifications. No hydronephrosis or hydroureter. AORTA AND RETROPERITONEUM: No aneurysm. No retroperitoneal masses or adenopathy. BOWEL AND PERITONEAL CAVITY: Anastomosis sigmoid colon. No obvious masses or inflammatory changes. N o free fluid. APPENDIX: Normal. PELVIS, BLADDER, AND ABDOMINAL WALL: No abnormal pelvic masses. No abdominal wall hernias. Bladder un remarkable. BONES: No significant findings. OTHER: No other significant finding. IMPRESSION: No acute findings in the abdomen or pelvis. TECHNICAL DOCUMENTATION: JOB ID: [id number] Quality ID # [id number]: Final reports with documentation of one or more dose reduction techniques (e.g., Au tomated exposure control, adjustment of the mA and/or kV according to patient size, use of iterative reconstruction technique) 2010 [employer]- All Rights Reserved
== END ==
LOC: RAD 11:43
PROVIDERS: ATTEND Physician Assistant Surgical
DX: R10.9 Unspecified abdominal pain (principal); Z87.19 Personal history of other diseases of the digestive system; Z98.890 Other specified postprocedural states
CPT/HCPCS: 74176

== ENCOUNTER → 2017-07-27 | Outpatient (CLI) | payer OTHER ==
[2017-07-27 16:12] LABS: ABSOLUTE BASOPHILS # (AUTO) 0.1 10^3/uL (0.0-0.2); ABSOLUTE EOSINOPHILS # (AUTO) 0.5 10^3/uL (0.0-0.6); ABSOLUTE LYMPHOCYTES (AUTO) 1.7 10^3/uL (0.5-4.7); ABSOLUTE MONOCYTES (AUTO) 0.9 10^3/uL (0.1-1.4); ABSOLUTE NEUT (AUTO) 5.2 10^3/uL (1.7-8.2); BASOPHILS % (AUTO) 0.7 % (0-2); EOSINOPHILS % (AUTO) 6.4 % (0-6); HEMATOCRIT 41.8 % (37.9-51.0); HEMOGLOBIN 14.4 g/dL (13.5-17.0); LYMPHOCYTES % (AUTO) 20.4 % (13-45); MEAN CORPUSCULAR HEMOGLOBIN 30.7 pg (27.0-33.4); MEAN CORPUSCULAR HGB CONC 34.4 g/dL (32.0-36.0); MEAN CORPUSCULAR VOLUME 89 fl (80-97); MONOCYTES % (AUTO) 10.5 % (3-13); PLATELET COUNT 197 10^3/uL (150-450); RED BLOOD COUNT 4.68 10^6/uL (4.35-5.55); RED CELL DISTRIBUTION WIDTH 13.8 % (11.5-14.0); TOTAL CELLS COUNTED % (AUTO) 100 %; WHITE BLOOD COUNT 8.5 10^3/uL (4.0-10.5)
[2017-07-27 16:37] LABS: ALANINE AMINOTRANSFERASE 33 U/L (21-72); ALBUMIN 3.7 g/dL (3.5-5.0); ALKALINE PHOSPHATASE 70 U/L (38-126); ANION GAP 9 (5-19); ASPARTATE AMINO TRANSFERASE 17 U/L (17-59); BILIRUBIN,DIRECT 0.2 mg/dL (0.0-0.4); BILIRUBIN,TOTAL 0.3 mg/dL (0.2-1.3); BLOOD UREA NITROGEN 17 mg/dL (7-20); C-REACTIVE PROTEIN 58.9 mg/L (<10.0); CALCIUM 9.8 mg/dL (8.4-10.2); CARBON DIOXIDE 25 mmol/L (22-30); CHLORIDE 106 mmol/L (98-107); CREATINE KINASE 80 U/L (55-170); GLUCOSE 98 mg/dL (75-110); MAGNESIUM 1.8 mg/dL (1.6-2.3); POTASSIUM 4.1 mmol/L (3.6-5.0); SODIUM 140.2 mmol/L (137-145); TOTAL PROTEIN 6.4 g/dL (6.3-8.2)
[2017-07-27 16:50] LABS: ERYTHROCYTE SEDIMENTATION RATE 55 mm/hr (0-15)
[2017-07-30 07:06] LABS: CYTOMEGALOVIRUS IGG AB <0.60 U/mL (0.00-0.59); CYTOMEGALOVIRUS IGM AB <30.0 AU/mL (0.0-29.9)
[2017-07-30 14:01] LABS: ALDOLASE 4.5 U/L (3.3-10.3); VITAMIN D 25-HYDROXY 32.3 ng/mL (30.0-100.0)
[2017-07-30 14:02] LABS: ANTINUCLEAR ANTIBODIES Negative (Negative)
== END ==
LOC: LAB 15:27
PROVIDERS: ATTEND Family Medicine
DX: M25.50 Pain in unspecified joint (principal)
CPT/HCPCS: 36415; 80053; 82085; 82306; 82550; 82607; 82746; 83735; 84443; 85025; 85652; 86038; 86140; 86430; 86617; 86618; 86644; 86701; 86747; 86757

== ENCOUNTER 2018-01-11 08:48 | Day surgery (SDC) | payer OTHER ==
[2018-01-07 10:25] LABS: HEMATOCRIT 44.2 % (37.9-51.0); HEMOGLOBIN 15.2 g/dL (13.5-17.0); MEAN CORPUSCULAR HEMOGLOBIN 31.3 pg (27.0-33.4); MEAN CORPUSCULAR HGB CONC 34.4 g/dL (32.0-36.0); MEAN CORPUSCULAR VOLUME 91 fl (80-97); PLATELET COUNT 151 10^3/uL (150-450); RED BLOOD COUNT 4.87 10^6/uL (4.35-5.55); RED CELL DISTRIBUTION WIDTH 13.5 % (11.5-14.0); WHITE BLOOD COUNT 6.4 10^3/uL (4.0-10.5)
[2018-01-07 10:55] LABS: ANION GAP 10 (5-19); BLOOD UREA NITROGEN 12 mg/dL (7-20); CALCIUM 9.7 mg/dL (8.4-10.2); CARBON DIOXIDE 29 mmol/L (22-30); CHLORIDE 105 mmol/L (98-107); GLUCOSE 93 mg/dL (75-110); POTASSIUM 4.4 mmol/L (3.6-5.0); SODIUM 144.1 mmol/L (137-145)
[~2018-01-11 08:48] MED LIST: GLYCOPYRROLATE 1 MG/5 ML SYRINGE ONE; KETOROLAC TROMETHAMINE 60 MG/2 ML SDV ONE; LACTATED RINGERS 1000 ML IV PRN; LIDOCAINE 0.5% INJ-PF (5 MG/ML) 50 ML SDV SUBCUT PRN; NEOSTIGMINE METHYLSULFATE 10 MG/10 ML VIAL ONE; ONDANSETRON HCL INJ/PF 4 MG/2 ML SDV ONE; ROCURONIUM BROMIDE INJ 50 MG/5 ML VIAL IV ONE; SUCCINYLCHOLINE CHLORIDE INJ 200 MG/10 ML VIAL ONE; VANCOMYCIN HCL 1,000 MG in DEXTROSE 5%-WATER 250 ML IV PRN
[2018-01-11] MEDS ORDERED: ONDANSETRON 4 MG TAB.RAPDIS ONE (10:20)
[2018-01-11] MEDS ORDERED: BUPIVACAINE HCL 0.25 % INJ/PF (2.5 MG/1 ML) 30 ML VIAL ONE (11:04)
[2018-01-11] MEDS ORDERED: EPHEDRINE SULFATE INJ 50 MG/1 ML AMPULE ONE (12:15)
[2018-01-11] MEDS ORDERED: FENTANYL CITRATE INJ/PF 100 MCG/2 ML AMPUL ONE (12:15)
[2018-01-11] MEDS ORDERED: MIDAZOLAM 2 MG/2 ML INJ ONE (12:15)
[2018-01-11] MEDS ORDERED: FENTANYL CITRATE INJ/PF 250 MCG/5 ML AMPULE ONE (12:15)
[2018-01-11] MEDS ORDERED: ACETAMINOPHEN 1,000 MG/100 ML RTUPB IV ONE (12:16)
[2018-01-11] MEDS ORDERED: PROPOFOL INJ 200 MG/20 ML VIAL IV ONE (12:16)
[2018-01-11] MEDS ORDERED: MORPHINE SULFATE 10 MG/ML INJ ONE (12:16)
[2018-01-11] MEDS ORDERED: MEPERIDINE HCL/PF INJ 25 MG/1 ML DISP.SYRIN IV PRN (13:30)
[2018-01-11] MEDS ORDERED: PROMETHAZINE HCL INJ 25 MG/1 ML VIAL IV PRN ×2 (13:30)
[2018-01-11] MEDS ORDERED: FENTANYL CITRATE INJ/PF 100 MCG/2 ML AMPUL IV PRN ×3 (13:30)
[2018-01-11] MEDS ORDERED: DIPHENHYDRAMINE HCL 50 MG/ML VIAL IV PRN (13:30)
[2018-01-11] MEDS ORDERED: OXYCODONE-ACETAMINOPHEN 5-325 MG TABLET PO PRN ×2 (13:30)
[2018-01-11] MEDS ORDERED: MORPHINE SULFATE 10 MG/ML INJ IV PRN (13:30)
[2018-01-11] MEDS ORDERED: HYDROCODONE/ACETAMINOPHEN 10-325 MG TABLET PO PRN (15:09)
--- NOTE | 2018-01-11 15:40 | Discharge Summary ---
Discharge Summary (SDC) - Discharge Final Diagnosis: ventral hernia Date of Surgery: 01/11/18 Discharge Date: 01/11/18 Condition: Stable Referrals: NIGHAT MELGOZA MD [Primary Care Provider] - Discharge Diet: As Tolerated Respiratory Treatments at Home: Deep Breathing/Coughing, Incentive Spirometer Discharge Activity: No Lifting Over 10 Pounds Home Care Assistance: None Needed Report the Following to Your Physician Immediately: Shortness of Breath, Nausea , Vomiting, Increase in Pain, Fever over 101 Degrees, Unusual Bleeding, Swelling , Warmth, Increased Soreness
[2018-01-11 17:03] VITALS: BP 126/82
--- NOTE | 2018-01-11 20:50 | Operative Report ---
Nonrecallable Operative Report DATE OF SURGERY: 01/11/18 PREOPERATIVE DIAGNOSIS: incisional ventral hernia POSTOPERATIVE DIAGNOSIS: Ventral, incisional hernia 2 OPERATION: Robot-assisted laparoscopic ventral hernia repair with mesh SURGEON: JACOB ROMO ANESTHESIA: GA TISSUE REMOVED OR ALTERED: None COMPLICATIONS: None apparent ESTIMATED BLOOD LOSS: Minimal PROCEDURE: Drains/implants: 20 x [address] hernia mesh. Procedure in detail: After informed consent was obtained, the patient was laid in the supine position in the operating room. The area of the abdomen was prepped and draped in a normal, sterile fashion. A 5 mm trocar was introduced into the left upper quadrant using a 5 mm camera and the Optiview technique. Once the trocar was inserted into the abdominal cavity, gas insufflation was attached and pneumoperitoneum was achieved. Next, a 12 mm left lateral trocar was placed under direct laparoscopic visualization. Another 8 mm left lower quadrant trocar was placed under direct laparoscopic visualization. The 5 mm trocar was removed and replaced with an 8 mm left upper quadrant trocar. The robot was then brought over the patient and docked appropriately. I then assumed my position at the surgeon's console. The abdomen was inspected. There were 2 ventral hernia defects present in the supraumbilical position. One was approximately 5 cm in total diameter. The more superior defect was smaller. Overall distance of the 2 defects together was approximately 10 cm. Secondary to this, a 20 cm long mesh was chosen to adequately cover the defect. The omentum was freed from the anterior abdominal wall using a mixture of sharp dissection and Bovie electrocautery. The falciform ligament was taken down using sharp dissection and Bovie electrocautery. Next, the midline fascia was closed using #1 permanent V lock suture in simple running fashion 2. The 20 x [address] hernia mesh was then inserted into the abdomen and apposed to the anterior abdominal wall. The mesh was sutured to the anterior abdominal wall using 2 -0 permanent V lock suture in simple running fashion. Once this was complete, the repair was inspected. It was found to be in good order. Next, attention was turned to closure of the port sites. All 3 port sites were closed using 0 Vicryl suture and the Endo Close device in simple interrupted fashion. Once this was complete, pneumoperitoneum was relieved. The overlying skin was closed using 4-0 Vicryl Rapide suture in subcuticular fashion. Dressings were placed, and the procedure was concluded. All sponge, instrument, and needle counts were correct 2. Condition: Stable.
== END 2018-01-11 17:11 | disposition home or self-care (01) ==
LOC: OROUT 08:48
PROVIDERS: ATTEND Surgery
DX: K43.9 Ventral hernia without obstruction or gangrene (principal); M10.9 Gout, unspecified; F17.210 Nicotine dependence, cigarettes, uncomplicated; Z88.0 Allergy status to penicillin; Z79.82 Long term (current) use of aspirin; Z91.041 Radiographic dye allergy status
CPT/HCPCS: 49652; S2900; 36415; 750; 80048; 85027; C1781; J0131; J0330; J1885; J2250; J2270; J2405; J2704; J3010; J3370; J3490; J7060; S0119

== ENCOUNTER → 2018-12-26 | Outpatient (CLI) | payer OTHER, MEDICAID ==
--- NOTE | 2018-12-26 08:35 | RADIOLOGY REPORT (SQ) ---
EXAM DESCRIPTION: CT ABD/PELVIS NO ORAL OR IV COMPLETED DATE/TIME: 12/26/2018 7:24 am REASON FOR STUDY: UNSPEC ABD PAIN (R10.9), S/P COLON RESECTION (Z90.49) R10.9 UNSPECIFIED ABDOMINAL PAIN COMPARISON: None. TECHNIQUE: CT scan of the abdomen and pelvis performed without intravenous or oral contrast. Images reviewed with lung, soft tissue, and bone windows. Reconstructed coronal and sagittal MPR images revi ewed. All images stored on PACS. All CT scanners at this facility use dose modulation, iterative reconstruction, and/or weight based d osing when appropriate to reduce radiation dose to as low as reasonably achievable (ALARA). [facility]: Dose Right [facility]: CareDose [facility]: Dose Right [facility]: Teradose 4D [facility]: [employer] RADIATION DOSE: CT Rad equipment meets quality standard of care and radiation dose reduction techniq ues were employed. CTDIvol: 6.5 mGy. DLP: 338 mGy-cm.mGy. LIMITATIONS: None. FINDINGS: LOWER CHEST: No significant findings. No nodules or infiltrates. NON-CONTRASTED LIVER, SPLEEN, ADRENALS: Evaluation limited by lack of IV contrast. No identified sign ificant masses. PANCREAS: No masses. No peripancreatic inflammatory changes. GALLBLADDER: No identified stones by CT criteria. No inflammatory changes to suggest cholecystitis. RIGHT KIDNEY AND URETER: No suspicious masses. Assessment limited by lack of IV contrast. No signif icant calcifications. No hydronephrosis or hydroureter. LEFT KIDNEY AND URETER: No suspicious masses. Assessment limited by lack of IV contrast. No signifi cant calcifications. No hydronephrosis or hydroureter. AORTA AND RETROPERITONEUM: No aneurysm. No retroperitoneal masses or adenopathy. BOWEL AND PERITONEAL CAVITY: Surgical anastomosis at the junction of the descending and sigmoid colon . No obvious masses or inflammatory changes. No free fluid. APPENDIX: Normal. PELVIS, BLADDER, AND ABDOMINAL WALL:No abnormal masses. No free fluid. Bladder normal. BONES: No significant findings. OTHER: No other significant finding. IMPRESSION: NO SIGNIFICANT OR ACUTE PROCESS IN THE ABDOMEN OR PELVIS. PREVIOUS COLON SURGERY. COMMENT: Quality ID # [id number]: Final reports with documentation of one or more dose reduction techniques (e.g., Automated exposure control, adjustment of the mA and/or kV according to patient size, use of iterative reconstruction technique) TECHNICAL DOCUMENTATION: JOB ID: [id number] [employer]- All Rights Reserved Reading location - IP/workstation name: [email or web address]
== END ==
LOC: RAD 07:08
PROVIDERS: ATTEND Surgery
DX: R10.9 Unspecified abdominal pain (principal); Z90.49 Acquired absence of other specified parts of digestive tract
CPT/HCPCS: 74176

== ENCOUNTER 2020-07-29 07:34 | Emergency (ER) | payer MEDICAID, OTHER ==
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
[2020-07-29] MEDS ORDERED: ONDANSETRON 4 MG TAB.RAPDIS PO ONE (09:23)
[2020-07-29 09:48] LABS: ABSOLUTE BASOPHILS # (AUTO) 0.1 10^3/uL (0.0-0.2); ABSOLUTE MONOCYTES (AUTO) 0.5 10^3/uL (0.1-1.4); ABSOLUTE NEUT (AUTO) 6.6 10^3/uL (1.7-8.2); BASOPHILS % (AUTO) 0.7 % (0-2); EOSINOPHILS % (AUTO) 0.5 % (0-6); HEMATOCRIT 43.5 % (37.9-51.0); HEMOGLOBIN 14.8 g/dL (13.5-17.0); MEAN CORPUSCULAR HEMOGLOBIN 30.6 pg (27.0-33.4); MEAN CORPUSCULAR HGB CONC 34.1 g/dL (32.0-36.0); MEAN CORPUSCULAR VOLUME 90 fl (80-97); MONOCYTES % (AUTO) 5.6 % (3-13); PLATELET COUNT 210 10^3/uL (150-450); RED BLOOD COUNT 4.85 10^6/uL (4.35-5.55); RED CELL DISTRIBUTION WIDTH 15.4 % (11.5-14.0); SEGMENTED NEUTROPHILS % (AUTO) 81.2 % (42-78); TOTAL CELLS COUNTED % (AUTO) 100 %; WHITE BLOOD COUNT 8.1 10^3/uL (4.0-10.5)
[2020-07-29 10:03] LABS: ALBUMIN 4.5 g/dL (3.5-5.0); ALKALINE PHOSPHATASE 165 U/L (38-126); ANION GAP 10 (5-19); ASPARTATE AMINO TRANSFERASE 26 U/L (17-59); BILIRUBIN,DIRECT 0.3 mg/dL (0.0-0.4); BILIRUBIN,TOTAL 1.1 mg/dL (0.2-1.3); BLOOD UREA NITROGEN 14 mg/dL (7-20); CALCIUM 10.9 mg/dL (8.4-10.2); CARBON DIOXIDE 30 mmol/L (22-30); CHLORIDE 100 mmol/L (98-107); GLUCOSE 134 mg/dL (75-110); POTASSIUM 4.1 mmol/L (3.6-5.0)
[2020-07-29] MEDS ORDERED: NORMAL SALINE 1000 ML 1,000 ML IV ONE (10:11)
[2020-07-29] MEDS ORDERED: ENOXAPARIN SODIUM INJ 80 MG/0.8 ML DISP.SYRIN SUBCUT ONE (10:29)
[2020-07-29] MEDS ORDERED: FENTANYL CITRATE INJ/PF 100 MCG/2 ML AMPUL IV ONE (10:30)
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
--- NOTE | 2020-07-29 11:16 | RADIOLOGY REPORT (SQ) ---
EXAM DESCRIPTION: CHEST SINGLE VIEW IMAGES COMPLETED DATE/TIME: 07/29/2020 11:00 am REASON FOR STUDY: dyspnea COMPARISON: None. EXAM PARAMETERS: NUMBER OF VIEWS: One view. TECHNIQUE: Single frontal radiographic view of the chest acquired. RADIATION DOSE: NA LIMITATIONS: None. FINDINGS: LUNGS AND PLEURA: No opacities, masses or pneumothorax. No pleural effusion. MEDIASTINUM AND HILAR STRUCTURES: No masses. Contour normal. HEART AND VASCULAR STRUCTURES: Heart normal in size. Normal vasculature. BONES: No acute findings. HARDWARE: None in the chest. OTHER: No other significant finding. IMPRESSION: NO ACUTE RADIOGRAPHIC FINDING IN THE CHEST. TECHNICAL DOCUMENTATION: JOB ID: [id number] 2010 [employer]- All Rights Reserved Reading location - IP/workstation name: [email or web address]
--- NOTE | 2020-07-29 11:22 | RADIOLOGY REPORT (SQ) ---
EXAM DESCRIPTION: CT ABD/PELVIS ORAL ONLY IMAGES COMPLETED DATE/TIME: 07/29/2020 11:05 am REASON FOR STUDY: LLQ pain COMPARISON: 12/26/2018. TECHNIQUE: CT scan of the abdomen and pelvis performed without intravenous or oral contrast. Images reviewed with lung, soft tissue, and bone windows. Reconstructed coronal and sagittal MPR images revi ewed. All images stored on PACS. All CT scanners at this facility use dose modulation, iterative reconstruction, and/or weight based d osing when appropriate to reduce radiation dose to as low as reasonably achievable (ALARA). [facility]: Dose Right [facility]: CareDose [facility]: Dose Right [facility]: Teradose 4D [facility]: [employer] RADIATION DOSE: CT Rad equipment meets quality standard of care and radiation dose reduction techniq ues were employed. CTDIvol: 6.4 mGy. DLP: 377 mGy-cm.mGy. LIMITATIONS: None. FINDINGS: LOWER CHEST: Faint density in the posterior lung bases. NON-CONTRASTED LIVER, SPLEEN, ADRENALS: Evaluation limited by lack of IV contrast. 5 cm low-attenuat ion mass in the posterior right lobe. PANCREAS: No masses. No peripancreatic inflammatory changes. GALLBLADDER: No identified stones by CT criteria. No inflammatory changes to suggest cholecystitis. RIGHT KIDNEY AND URETER: No suspicious masses. Assessment limited by lack of IV contrast. No signif icant calcifications. No hydronephrosis or hydroureter. LEFT KIDNEY AND URETER: No suspicious masses. Assessment limited by lack of IV contrast. No signifi cant calcifications. No hydronephrosis or hydroureter. AORTA AND RETROPERITONEUM: No aneurysm. No retroperitoneal masses or adenopathy. BOWEL AND PERITONEAL CAVITY: Contrast is present in the stomach and small bowel. There is dilation o f the proximal small bowel. Stool in the colon and surgical changes in the rectosigmoid. APPENDIX: Not visualized. PELVIS, BLADDER, AND ABDOMINAL WALL:No abnormal masses. Probable small amount of free fluid. Bladder normal. BONES: No significant findings. OTHER: No other significant finding. IMPRESSION: 1. DILATED PROXIMAL SMALL BOWEL, SOMEWHAT CONCERNING FOR SMALL BOWEL OBSTRUCTION. EXACT TRANSITION P OINT IS NOT APPARENT. 2. 5 CM LOW-ATTENUATION LESION IN THE RIGHT LOBE OF THE LIVER. POSSIBLE ETIOLOGIES INCLUDE SOLID MAS S, COMPLEX CYST, OR ABSCESS. RECOMMEND FURTHER EVALUATION WITH ULTRASOUND. 3. FAINT DENSITIES IN THE POSTERIOR LUNG BASES, NONSPECIFIC. MAY BE DUE TO ATELECTASIS OR INFECTION. 4. NO OTHER SIGNIFICANT OR ACUTE PROCESS IN THE ABDOMEN OR PELVIS. COMMENT: Quality ID # [id number]: Final reports with documentation of one or more dose reduction techniques (e.g., Automated exposure control, adjustment of the mA and/or kV according to patient size, use of iterative reconstruction technique) TECHNICAL DOCUMENTATION: JOB ID: [id number] 2010 [employer]- All Rights Reserved Reading location - IP/workstation name: [email or web address]
[2020-07-29 11:40] LABS: AMORPHOUS SEDIMENT,URINE TRACE /HPF; APPEARANCE,URINE CLOUDY; BILIRUBIN,URINE NEGATIVE (NEGATIVE); GLUCOSE, URINE NEGATIVE (NEGATIVE); KETONES,URINE NEGATIVE (NEGATIVE); LEUKOCYTE ESTERASE,URINE NEGATIVE (NEGATIVE); NITRITE,URINE NEGATIVE (NEGATIVE); PROTEIN,URINE 30 mg/dL (NEGATIVE); URINE SPECIFIC GRAVITY 1.018; UROBILINOGEN,URINE NEGATIVE mg/dL (<2.0)
[2020-07-29 11:45] LABS: COLOR,URINE DARK YELLOW
[2020-07-29 12:00] LABS: URINE AMPHETAMINES SCREEN NEGATIVE; URINE BARBITURATES SCREEN NEGATIVE; URINE BENZODIAZEPINES SCREEN NEGATIVE; URINE COCAINE SCREEN NEGATIVE; URINE MARIJUANA (THC) SCREEN NEGATIVE; URINE METHADONE SCREEN NEGATIVE; URINE PHENCYCLIDINE SCREEN NEGATIVE
[2020-07-29] MEDS ORDERED: MAGNESIUM CITRATE 296 ML BOTTLE PO ONE ×2 (12:26→16:51)
--- NOTE | 2020-07-29 13:41 | RADIOLOGY REPORT (SQ) ---
EXAM DESCRIPTION: U/S ABDOMEN COMPLETE W/O DOP IMAGES COMPLETED DATE/TIME: 07/29/2020 1:15 pm REASON FOR STUDY: Hepatic cyst/abscess? On CT COMPARISON: CT 07/29/2020 TECHNIQUE: Dynamic and static grayscale images acquired of the abdomen and recorded on PACS. Additio nal selected color Doppler and spectral images recorded. Note: Study does not meet criteria for complete doppler/duplex scan LIMITATIONS: None. FINDINGS: PANCREAS: No mass in the head. Poorly seen body and tail. LIVER: Echotexture normal. There is a 5.6 x 5.3 x 4 cm complex areas seen in the right lobe. LIVER VASCULATURE: Normal directional flow of the main portal vein and hepatic veins. GALLBLADDER: No stones. Normal wall thickness. No pericholecystic fluid. ULTRASOUND-DETECTED FIGUEROA'S SIGN: Negative. INTRAHEPATIC DUCTS AND COMMON DUCT: CBD and intrahepatic ducts normal caliber. No filling defects. INFERIOR VENA CAVA: Normal flow. AORTA: The mid and distal abdominal aorta were obscured by gas. RIGHT KIDNEY: Normal size, 13.7 cm Normal echogenicity. No solid or suspicious masses. No hydr onephrosis. No calcifications. LEFT KIDNEY: Normal size, 11.6 cm. Normal echogenicity. No solid or suspicious masses. No hydr onephrosis. No calcifications. SPLEEN: Normal size. No solid masses. PERITONEAL AND PLEURAL SPACES: No ascites or effusions. OTHER: No other significant finding. IMPRESSION: There is a complex 5.3 x 5.6 x 4 cm area seen in the right lobe of the liver suggestive of an abscess. TECHNICAL DOCUMENTATION: JOB ID: [id number] 2010 [employer]- All Rights Reserved Reading location - IP/workstation name: [email or web address]
[2020-07-29] MEDS ORDERED: KETOROLAC TROMETHAMINE INJ/PF 30 MG/1 ML SDV IV ONE (15:03)
[2020-07-29] MEDS ORDERED: MINERAL OIL 30 ML UDCUP PR ONE (15:04)
[2020-07-29] MEDS ORDERED: ONDANSETRON HCL INJ/PF 4 MG/2 ML SDV IV ONE (15:04)
[2020-07-29 20:38] VITALS: BP 134/86
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
== END 2020-07-29 20:39 | disposition home or self-care (01) ==
LOC: ER 07:34
DX: K56.600 Partial intestinal obstruction, unspecified as to cause (principal); K76.9 Liver disease, unspecified; R11.10 Vomiting, unspecified; R10.84 Generalized abdominal pain; R06.00 Dyspnea, unspecified; S82.92XD Unspecified fracture of left lower leg, subsequent encounter for closed fracture with routine healing; S82.91XD Unspecified fracture of right lower leg, subsequent encounter for closed fracture with routine healing; V49.9XXD Car occupant (driver) (passenger) injured in unspecified traffic accident, subsequent encounter; Z79.891 Long term (current) use of opiate analgesic; Z79.01 Long term (current) use of anticoagulants; Z98.890 Other specified postprocedural states; Z90.49 Acquired absence of other specified parts of digestive tract; Z87.891 Personal history of nicotine dependence; Z88.0 Allergy status to penicillin
CPT/HCPCS: 99285; 96372; 96361; 96374; 96375; 36415; 85025; 80053; 81001; 80307; 71045; 76700; 74176; J3490 ×2; S0119; J3010; J1885; J2405; J7030; J1650

== ENCOUNTER 2020-08-11 16:15 | Observation (INO) | payer OTHER ==
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
[2020-08-11] MEDS ORDERED: ONDANSETRON HCL INJ/PF 4 MG/2 ML SDV IV ONE (18:19)
[2020-08-11] MEDS ORDERED: HYDROMORPHONE HCL INJ/PF 2 MG/ML AMPULE IV ONE (18:19)
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
--- NOTE | 2020-08-11 18:29 | RADIOLOGY REPORT (SQ) ---
EXAM DESCRIPTION: CHEST SINGLE VIEW IMAGES COMPLETED DATE/TIME: 08/11/2020 6:19 pm REASON FOR STUDY: Preop chest x-ray COMPARISON: 07/29/2020 EXAM PARAMETERS: NUMBER OF VIEWS: One view. TECHNIQUE: Single frontal radiographic view of the chest acquired. RADIATION DOSE: NA LIMITATIONS: None. FINDINGS: LUNGS AND PLEURA: No opacities, masses or pneumothorax. No pleural effusion. MEDIASTINUM AND HILAR STRUCTURES: No masses. Contour normal. HEART AND VASCULAR STRUCTURES: Heart normal in size. Normal vasculature. BONES: No acute findings. HARDWARE: None in the chest. OTHER: No other significant finding. IMPRESSION: NO ACUTE RADIOGRAPHIC FINDING IN THE CHEST. TECHNICAL DOCUMENTATION: JOB ID: [id number] 2010 [facility]- All Rights Reserved Reading location - IP/workstation name: [email or web address]
[2020-08-11 19:05] LABS: ABSOLUTE EOSINOPHILS # (AUTO) 0.2 10^3/uL (0.0-0.6); ABSOLUTE LYMPHOCYTES (AUTO) 1.6 10^3/uL (0.5-4.7); ABSOLUTE MONOCYTES (AUTO) 0.5 10^3/uL (0.1-1.4); ABSOLUTE NEUT (AUTO) 3.4 10^3/uL (1.7-8.2); BASOPHILS % (AUTO) 0.8 % (0-2); HEMATOCRIT 39.2 % (37.9-51.0); HEMOGLOBIN 13.2 g/dL (13.5-17.0); LYMPHOCYTES % (AUTO) 28.3 % (13-45); MEAN CORPUSCULAR HEMOGLOBIN 30.2 pg (27.0-33.4); MEAN CORPUSCULAR HGB CONC 33.8 g/dL (32.0-36.0); MEAN CORPUSCULAR VOLUME 89 fl (80-97); MONOCYTES % (AUTO) 8.9 % (3-13); PLATELET COUNT 189 10^3/uL (150-450); RED BLOOD COUNT 4.39 10^6/uL (4.35-5.55); RED CELL DISTRIBUTION WIDTH 14.2 % (11.5-14.0); TOTAL CELLS COUNTED % (AUTO) 100 %; WHITE BLOOD COUNT 5.8 10^3/uL (4.0-10.5)
[2020-08-11] MEDS ORDERED: MAG HYDROX/AL HYDROX/SIMETH SUSP 30 ML UDCUP PO PRN (19:14)
[2020-08-11] MEDS ORDERED: ONDANSETRON 4 MG TAB.RAPDIS PO PRN (19:14)
[2020-08-11 19:24] LABS: ALBUMIN 3.7 g/dL (3.5-5.0); ALKALINE PHOSPHATASE 107 U/L (38-126); ANION GAP 5 (5-19); ASPARTATE AMINO TRANSFERASE 21 U/L (17-59); BILIRUBIN,DIRECT 0.2 mg/dL (0.0-0.4); BILIRUBIN,TOTAL 0.4 mg/dL (0.2-1.3); BLOOD UREA NITROGEN 16 mg/dL (7-20); CALCIUM 9.5 mg/dL (8.4-10.2); CARBON DIOXIDE 30 mmol/L (22-30); CHLORIDE 104 mmol/L (98-107); GLUCOSE 117 mg/dL (75-110); POTASSIUM 3.8 mmol/L (3.6-5.0); TOTAL PROTEIN 6.4 g/dL (6.3-8.2)
--- NOTE | 2020-08-11 19:26 | EKG REPORT ---
SEVERITY:- ABNORMAL ECG - SINUS RHYTHM RIGHT BUNDLE BRANCH BLOCK : Confirmed by: Norman Tee MD 11-Aug-2020 19:26:05
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
[2020-08-11] MEDS: OXYCODONE HCL IR 5 MG TABLET PO PRN (21:40)
[2020-08-11] MEDS: ACETAMINOPHEN 325 MG TABLET PO SCH (22:01)
[2020-08-11] MEDS: MORPHINE SULFATE 10 MG/ML INJ IV PRN (23:11)
[2020-08-12 00:09] LABS: APPEARANCE,URINE SLIGHTLY-CLOUDY; BILIRUBIN,URINE NEGATIVE (NEGATIVE); COLOR,URINE YELLOW; GLUCOSE, URINE NEGATIVE (NEGATIVE); KETONES,URINE NEGATIVE (NEGATIVE); LEUKOCYTE ESTERASE,URINE NEGATIVE (NEGATIVE); NITRITE,URINE NEGATIVE (NEGATIVE); PROTEIN,URINE NEGATIVE (NEGATIVE); URINE SPECIFIC GRAVITY 1.018; UROBILINOGEN,URINE NEGATIVE mg/dL (<2.0)
[2020-08-12] MEDS: OXYCODONE HCL IR 5 MG TABLET PO PRN (03:11)
[2020-08-12] MEDS: MORPHINE SULFATE 10 MG/ML INJ IV PRN (04:25)
[2020-08-12] MEDS ORDERED: PANTOPRAZOLE SODIUM 20 MG TABLET.DR PO SCH (06:00)
[2020-08-12] MEDS ORDERED: MIDAZOLAM 2 MG/2 ML INJ ONE (06:51)
[2020-08-12] MEDS ORDERED: HYDROMORPHONE HCL INJ/PF 2 MG/ML AMPULE ONE (06:51)
[2020-08-12] MEDS ORDERED: PROPOFOL INJ 200 MG/20 ML VIAL IV ONE (06:52)
[2020-08-12] MEDS ORDERED: ROPIVACAINE HCL 0.5% INJ/PF (5 MG/1 ML) 30 ML SDV ONE (07:03)
[2020-08-12] MEDS: ACETAMINOPHEN 325 MG TABLET PO SCH ×2 (07:04→15:31)
[2020-08-12] MEDS ORDERED: BUPIVACAINE HCL 0.5 % INJ/PF 30 ML SDV ONE (07:08)
[2020-08-12] MEDS ORDERED: CEFAZOLIN 2 GM/D5W RTU 2 GM/50 ML RTUPB IV ONE (07:24)
[2020-08-12] MEDS ORDERED: CEFAZOLIN INJ 1 GM VIAL ONE (07:24)
[2020-08-12] MEDS ORDERED: VANCOMYCIN HCL INJ 1000 MG VIAL ONE (07:26)
[2020-08-12] MEDS ORDERED: DEXMEDETOMIDINE INJ 80 MCG/20 ML VIAL IV ONE (07:37)
[2020-08-12] MEDS ORDERED: DIPHENHYDRAMINE HCL 50 MG/ML VIAL IV PRN (08:12)
[2020-08-12] MEDS ORDERED: PROMETHAZINE HCL INJ 25 MG/1 ML VIAL IV PRN ×2 (08:12)
[2020-08-12] MEDS ORDERED: MEPERIDINE HCL/PF INJ 25 MG/1 ML DISP.SYRIN IV PRN (08:12)
[2020-08-12] MEDS ORDERED: ONDANSETRON HCL INJ/PF 4 MG/2 ML SDV IV PRN (08:12)
[2020-08-12] MEDS ORDERED: OXYCODONE-ACETAMINOPHEN 5-325 MG TABLET PO PRN ×2 (08:12)
[2020-08-12] MEDS ORDERED: FENTANYL CITRATE INJ/PF 100 MCG/2 ML AMPUL IV PRN ×3 (08:12)
[2020-08-12] MEDS ORDERED: TRANEXAMIC ACID INJ/PF 1,000 MG/10 ML SDV ONE (08:58)
[2020-08-12] MEDS ORDERED: DOCUSATE SODIUM 100 MG CAPSULE PO SCH (10:00)
[2020-08-12] MEDS ORDERED: RINGERS SOLUTION,LACTATED 1,000 ML IV PRN (10:53)
--- NOTE | 2020-08-12 11:03 | RADIOLOGY REPORT (SQ) ---
EXAM DESCRIPTION: HUMERUS LEFT; NO CHG FLUORO IMAGES COMPLETED DATE/TIME: 08/12/2020 10:38 am REASON FOR STUDY: ORIF LEFT HUMERUS ASSISTED WITH FLUORO IN OR COMPARISON: 08/11/2020 FLUOROSCOPY TIME: 8 seconds 6 images saved to PACS. TECHNIQUE: Intra-operative images acquired during surgical procedure to evaluate progress. NUMBER OF IMAGES: 6 LIMITATIONS: None. FINDINGS: 6 intraoperative fluoroscopic spot images were obtained had over the course of apparent op en reduction, internal fixation revision of the left humerus. Images are submitted for administrativ e purposes only. Please refer to the operative report for full details regarding this procedure. IMPRESSION: IMAGE(S) OBTAINED DURING PROCEDURE. COMMENT: Quality ID [id number]: Final reports for procedures using fluoroscopy that document radiation exp osure indices, or exposure time and number of fluorographic images (if radiation exposure indices are not available) Please consult full operative report of the attending physician for description of the procedure. TECHNICAL DOCUMENTATION: JOB ID: [id number] 2010 [place] [employer]- All Rights Reserved Reading location - IP/workstation name: [email or web address]
--- NOTE | 2020-08-12 11:03 | RADIOLOGY REPORT (SQ) ---
EXAM DESCRIPTION: HUMERUS LEFT; NO CHG FLUORO IMAGES COMPLETED DATE/TIME: 08/12/2020 10:38 am REASON FOR STUDY: ORIF LEFT HUMERUS ASSISTED WITH FLUORO IN OR COMPARISON: 08/11/2020 FLUOROSCOPY TIME: 8 seconds 6 images saved to PACS. TECHNIQUE: Intra-operative images acquired during surgical procedure to evaluate progress. NUMBER OF IMAGES: 6 LIMITATIONS: None. FINDINGS: 6 intraoperative fluoroscopic spot images were obtained had over the course of apparent op en reduction, internal fixation revision of the left humerus. Images are submitted for administrativ e purposes only. Please refer to the operative report for full details regarding this procedure. IMPRESSION: IMAGE(S) OBTAINED DURING PROCEDURE. COMMENT: Quality ID [id number]: Final reports for procedures using fluoroscopy that document radiation exp osure indices, or exposure time and number of fluorographic images (if radiation exposure indices are not available) Please consult full operative report of the attending physician for description of the procedure. TECHNICAL DOCUMENTATION: JOB ID: [id number] 2010 [employer]- All Rights Reserved Reading location - IP/workstation name: [email or web address]
--- NOTE | 2020-08-12 11:29 | Operative Report ---
Operative Report DATE OF SURGERY: 08/12/20 PREOPERATIVE DIAGNOSIS: Failure of hardware and recurrent left humeral shaft fr acture. POSTOPERATIVE DIAGNOSIS: Failure of hardware, oligotrophic left humeral shaft fracture nonunion. OPERATION: Left humeral shaft fracture open reduction internal fixation revision with removal of hardware and iliac crest bone marrow aspirate harvest SURGEON: AMLU LOAIZA JR ANESTHESIA: GA TISSUE REMOVED OR ALTERED: Cultures superficial and deep, and specimen sent for permanent pathology.. COMPLICATIONS: None ESTIMATED BLOOD LOSS: 350 cc PROCEDURE: The patient was brought into the operating suite and placed under general anesthesia on his hospital bed. Following appropriate anesthesia, he was transferred to the operating table in supine position. His left upper extremity was then positioned on a hand table. The patient was positioned with a bump under her shoulder and slight elevation of the head of the table. The left upper extremity was then prepped and draped in standard sterile fashion as well as a area over the left iliac crest. An appropriate timeout was performed followed by a small incision over the anterior iliac crest. Just deep to the skin, blunt dissection was performed to bone with a hemostat. After this a trocar was inserted for bone marrow aspirate from the iliac crest. This was pushed gently through the bone and advanced along the inner table of the iliac crest. Upon achieving appropriate depth, a substantial amount of bone marrow aspirate was easily obtained, 40 cc. Some gauze was placed over this wound until closure later in the case. We turned our attention to the humerus. The prior incision had developed a thickened keloid. I excised this tissue by incising on either border of the keloid and gently removing it from the dermis. After this, gentle dissection to the fascia was performed with blunt dissection and spreading with a Metzenbaum scissor. We were able to continue through the prior tissue planes performing an approach to the humerus through the anterior lateral approach lateral to the biceps. The biceps was reflected medially. Gentle dissection through prior scar tissue was carefully performed in order to avoid any crossing vasculature or neurovascular structures. Any crossing vasculature encountered was cau terized. The fracture was exposed and we carried our deep exposure along the visible plate both proximally and distally taking care to note any neurovascular structures. Cultures were taken of the plate and surrounding tissues with a culture swab and additionally cultures were sent in a specimen cup of some of the local tissues. The radial nerve was found laterally and distally and was protected throughout the case. I refrain from periosteal stripping but attempted to leave as much soft tissue intact. The plate was fully exposed and the screws were removed followed by removal of the plate. Further exploration of the fracture site revealed minimal callus formation in spite of what appeared to be more abundant callus on prior x-rays. Some of this tissue was also sent as a culture and specimen for permanent pathology. The fracture site was exposed and the ends of the fracture were then prepared by rongeuring away any nonviable appearing tissue as well as curetting the ends of the bone until some punctate bleeding was encountered. Some surrounding callus formation and any viable appearing bone as well as bone was collected for later autograft. After this the fracture was reduced and keyed in place. A pointed reduction forcep was placed in order to obtain a provisional reduction. A 4.0 compression plate was placed anteriorly and a screw was drilled in the oblong hole proximally as well as the oblong hole distally. This was done at the most peripheral aspect of each hole in order to allow for maximal compression. Screws were not completely seated and we then turned our attention to a larger plate. At this point the wound was copiously irrigated with sterile saline solution. The [place] V toss bone graft was mixed with our autogenic bone marrow aspirate. This was then placed in and around the fracture site prior to application of the 5.0 plate. A 5.0 plate was placed laterally on the humerus taking care to position it so that the ends of the plate were not the same level of the prior plate. The plate was held provisionally in place with a lobster claw. The 4.0 compression screws were then tightened down in order to obtain provisional compression. Returning to the 5.0 plate, again I drilled holes in the oblong options at the most peripheral aspect in order to obtain the most compression possible. The screws were also tightened down again to obtain maximal compression. A third oblong screw was drilled for compression and placed in the plate. Finally 2 locking screws were inserted into this plate at the most peripheral locking screw holes. The distal screw holes were also filled with nonlocking screws. We returned to the 4.0 plate where completed our stabilization by placing 3 nonlocking screws above and below the fracture. Fluoroscopy was used to check screw lengths. 2 screws were exchanged and a 4.0 plate due to slightly long length. Final fluoroscopy was then taken to ensure fracture reduction and appropriate hardware position. All screws were then tightened down. The wound was again copiously irrigated with sterile saline solution. The remainder of our bone graft both Vitoss with autologous BMAC as well as autologous bone collected from the fracture site were then placed about the fracture. 1 g of vancomycin was used in the deep tissues, preserving a small amount to later use in the superficial tissue. The deep fascia was closed with a running 2-0Quill. The superficial layer then had the remainder of the vancomycin applied. The dermal layer then was closed with a running 2-0 Quill. I then sewed the skin together with a 3-0 nylon and horizontal mattress fashion. A sterile dressing was then placed with Xeroform 4 x 4's and a honeycomb dressing followed by a gentle Patrice wrap. The hip wound was irrigated with sterile saline and closed with 3-0 nylon followed by a sterile dressing. The patient was then awakened from anesthesia and transferred the PACU in stable condition.
--- NOTE | 2020-08-12 11:30 | Discharge Summary ---
Discharge Summary (SDC) - Discharge Final Diagnosis: Left recurrent humeral shaft fracture and hardware failure Date of Surgery: 08/12/20 Discharge Date: 08/12/20 Condition: Stable Treatment or Instructions: Follow-up with Dr. Brett Moreno, orthopedic surgeon at [facility] for surgery, in 10 days. Call for an appointment. . [address], [place] [address] Patient was provided with a paper prescription of oxycodone given that [facility] and needs [facility] hard prescription. Follow the prescription details, do not operate a motor vehicle while taking narcotics I have also encouraged him to supplement his pain control with Tylenol. He is to take a daily baby aspirin 81 mg I encourage full range of motion of the elbow and shoulder. He may wear a sling for comfort. He does depend on his upper extremity substantially given that he has bilateral lower extremity fractures and has difficulty with mobilization. Given this he is able to weight-bear on the left upper extremity immediately however I have encouraged him to limit his left upper extremity weightbearing to 50%. 5000 international units of vitamin D should be consumed daily. I am currently awaiting a further metabolic work-up including PTH TSH and vitamin D as for a potential reason for his delayed union and need for recurrent surgery. A sterile occlusive dressing is currently in place. As long as this stays intact he may take a shower. If it begins to come off he needs to avoid getting the incision wet until approved by follow-up in the office. He may reinforce his dressing with further waterproof dressings that he can find at the pharmacy. He may leave his dressing in place until seen in my office. Referrals: PEARL BARONE, [facility] [Primary Care Provider] - Follow up as needed Respiratory Treatments at Home: Deep Breathing/Coughing Discharge Activity: Activity As Tolerated, No Driving, Slowly Increase Activity, No tub bath Activities Provided by Home Health Agency: Physical Therapy Report the Following to Your Physician Immediately: Shortness of Breath, Fever over 101 Degrees, Unusual Bleeding, Drainage-Yellow
--- NOTE | 2020-08-12 12:00 | RADIOLOGY REPORT (SQ) ---
EXAM DESCRIPTION: HUMERUS LEFT IMAGES COMPLETED DATE/TIME: 08/12/2020 11:38 am REASON FOR STUDY: post op COMPARISON: 08/11/2020. NUMBER OF VIEWS: Two views. TECHNIQUE: Two radiographic images were acquired of the left humerus to include elbow and shoulder i n at least one projection. LIMITATIONS: None. FINDINGS: MINERALIZATION: Normal. BONES: Post surgical fixation of the fracture of the humerus with hardware. Satisfactory alignment. SOFT TISSUES: Expected surgical changes in the soft tissues. OTHER: No other significant finding. IMPRESSION: SATISFACTORY POSTOPERATIVE APPEARANCE. TECHNICAL DOCUMENTATION: JOB ID: [id number] [email or web address]- All Rights Reserved Reading location - IP/workstation name: [email or web address]
[2020-08-12] MEDS ORDERED: DEXAMETHASONE SOD PHOSPHATE INJ 4 MG/1 ML VIAL ONE (12:39)
[2020-08-12] MEDS ORDERED: LIDOCAINE 2% INJ-PF (20 MG/ML) 2 ML AMPUL ONE (12:39)
[2020-08-12] MEDS ORDERED: METOCLOPRAMIDE HCL INJ/PF 10 MG/2 ML SDV ONE (12:39)
[2020-08-12] MEDS ORDERED: PHENYLEPHRINE HCL INJ/PF 10 MG/1 ML SDV ONE (12:39)
[2020-08-12] MEDS ORDERED: ROCURONIUM BROMIDE INJ 50 MG/5 ML VIAL IV ONE (12:39)
[2020-08-12] MEDS ORDERED: ONDANSETRON HCL INJ/PF 4 MG/2 ML SDV ONE (12:39)
[2020-08-12 15:53] VITALS: BP 153/98
== END 2020-08-12 16:30 | disposition home or self-care (01) ==
LOC: ER 16:15 → EH 18:27 → INTOOBSV 18:27 → 5 21:01
PROVIDERS: ADMIT Orthopaedic Surgery; ATTEND Orthopaedic Surgery
DX: S42.322K Displaced transverse fracture of shaft of humerus, left arm, subsequent encounter for fracture with nonunion (principal); V89.2XXD Person injured in unspecified motor-vehicle accident, traffic, subsequent encounter; T84.111A Breakdown (mechanical) of internal fixation device of left humerus, initial encounter; X58.XXXA Exposure to other specified factors, initial encounter; Z01.812 Encounter for preprocedural laboratory examination; Z20.822 Contact with and (suspected) exposure to COVID-19; Z99.3 Dependence on wheelchair; F17.200 Nicotine dependence, unspecified, uncomplicated
CPT/HCPCS: 93005; 99285; 36415; 87070; 87205; 85025; 0241U; 87075; 80053; 81001; 88305 ×2; 88311; 71045; 73060 ×2; 93010; 01744; 24435; G0378 ×3; C1713 ×6; J2795; J2250; J0690; J3490 ×4; J1100; S0119; J2765; J2270 ×2; J1170 ×2; J2370; J2405 ×2; J7120; J2704; J3370; C9803